=== PATIENT | female | born 1950 | race Asian ===

== ENCOUNTER 2024-04-24 05:05 | Inpatient (IN) | payer MEDICARE, OTHER ==
[~2024-04-24] VITALS: Ht 157.5 cm; Wt 74.6 kg
[2024-04-24] VITALS (9 sets, daily range): BP systolic 108–124; BP diastolic 53–76; TEMP 97.5–98.6; O2SAT 95–100
[2024-04-24] MEDS ORDERED: TRANEXAMIC ACID 1,000 MG/10 ML VIAL ONE (05:48)
[2024-04-24] MEDS ORDERED: POLYMYXIN B SULFATE 500,000 UNITS ONE (05:48)
[2024-04-24] MEDS ORDERED: BUPIVACAINE 0.5 % PF 150 MG/30 ML VIAL ONE (05:48)
[2024-04-24] MEDS ORDERED: FENTANYL PF 250MCG/5ML AMPUL ONE (06:16)
[2024-04-24] MEDS ORDERED: ROCURONIUM BROMIDE 50 MG/5 ML ONE (06:16)
[2024-04-24] MEDS ORDERED: TRANEXAMIC ACID 1,000 MG in SODIUM CHLORIDE IRRIG SOLUTION 90 ML IR ONE (06:30)
[2024-04-24] MEDS ORDERED: SEVOFLURANE 250 ML BOTTLE IH ONE (07:06)
[2024-04-24] MEDS ORDERED: LABETALOL HCL IV 100MG VIAL ONE (07:06)
[2024-04-24] MEDS ORDERED: ROPIVACAINE HCL 0.5% 5 MG/ML 30ML VIAL ONE (07:50)
[2024-04-24] MEDS: FENTANYL PF 100MCG/2ML AMPUL IV PRN (08:40)
[2024-04-24] MEDS ORDERED: HYDROCODONE/APAP 5/325MG TABLET PO PRN (10:30)
[2024-04-24] MEDS ORDERED: BISACODYL SUPP (10 MG) 10 MG/SUPP.RECT SUPP.RECT RC PRN (10:30)
[2024-04-24] MEDS ORDERED: ZOLPIDEM TARTRATE 5 MG TABLET PO PRN (10:30)
[2024-04-24] MEDS ORDERED: ACETAMINOPHEN 325 MG TABLET PO PRN (10:30)
[2024-04-24] MEDS ORDERED: DOCUSATE SODIUM 250 MG CAPSULE PO PRN (10:30)
[2024-04-24] MEDS ORDERED: MENTHOL/CETYLPYRD (CEPACOL) 1 LOZ LOZENGE PO PRN (11:00)
[2024-04-24] MEDS ORDERED: MAGNESIUM HYDROXIDE 30 ML UDC PO PRN (11:00)
[2024-04-24] MEDS ORDERED: MAG HYDROX/AL HYDROX/SIMETH 30 ML UDC PO PRN (11:00)
[2024-04-24] MEDS ORDERED: CLONIDINE HCL 0.1 MG TABLET PO PRN (11:00)
[2024-04-24] MEDS ORDERED: oxyCODONE IR immediate release 5 MG TABLET PO PRN (11:00)
[2024-04-24] MEDS ORDERED: diphenhydrAMINE HCL 25 MG CAPSULE PO PRN (11:00)
[2024-04-24] MEDS: HYDROMORPHONE 1 MG/1 ML DISP.SYRIN IV ONE (11:06)
[2024-04-24] MEDS: FAMOTIDINE (20 MG) 20 MG TABLET PO SCH (11:21)
[2024-04-24 13:14] LABS: HEMOGLOBIN 11.1 g/dL (11.5-14.8)
[2024-04-24] MEDS: ONDANSETRON HCL/PF 4 MG/2 ML VIAL IVP PRN (13:28)
[2024-04-24] MEDS: IV D5/0.45 NACL 1,000 ML IV PRN (13:31)
[2024-04-24] MEDS: HYDROMORPHONE 1 MG/1 ML DISP.SYRIN IV PRN (13:35)
[2024-04-24] MEDS: ANCEF 1 GM/50 ML D5W IV SCH (14:04)
[2024-04-24] MEDS ORDERED: ALBU18HF2 IH (15:56)
[2024-04-24] MEDS ORDERED: AMLO-212 PO (15:56)
[2024-04-24] MEDS ORDERED: LOSA100T31 PO (15:56)
[2024-04-24] MEDS ORDERED: VITA1TAB56 PO (15:56)
[2024-04-24] MEDS: DOCUSATE SODIUM 100 MG CAPSULE PO SCH (16:36)
[2024-04-24] MEDS: oxyCODONE IR immediate release 5 MG TABLET PO PRN (21:54)
[2024-04-25 07:23] LABS: BASOPHILS % (AUTO) 0.4 % (0.0-2.0); EOSINOPHILS # (AUTO) 0.1 K/uL (0.0-0.7); EOSINOPHILS % (AUTO) 1.3 % (0.0-6.0); HEMATOCRIT 31 % (33-45); HEMOGLOBIN 9.7 g/dL (11.5-14.8); LYMPHOCYTES # (AUTO) 1.4 K/uL (0.8-4.8); LYMPHOCYTES % (AUTO) 16.8 % (20.0-44.0); MEAN CORPUSCULAR HEMOGLOBIN 23 PG (26.0-33.0); MEAN CORPUSCULAR HGB CONC 32 g/dl (31.0-36.0); MEAN CORPUSCULAR VOLUME 73 fL (82-100); MONOCYTES # (AUTO) 0.7 K/uL (0.1-1.30); MONOCYTES % (AUTO) 8.5 % (2.0-12.0); NEUTROPHILS # (AUTO) 6.1 K/uL (1.8-8.9); PLATELET COUNT (AUTO) 153 K/uL (150-450); RED CELL DISTRIBUTION WIDTH 14.5 % (11.5-15.0); WHITE BLOOD COUNT (AUTO) 8.4 K/uL (4.3-11.0)
[2024-04-25 07:42] LABS: ALBUMIN 3.2 g/dL (3.4-5.0); BILIRUBIN,TOTAL 0.8 mg/dL (0.2-1.0); CALCIUM, SERUM 8.3 mg/dL (8.5-10.1); CREATININE 0.9 mg/dL (0.6-1.3); MAGNESIUM 2.2 mg/dL (1.8-2.4); PHOSPHORUS 2.9 mg/dL (2.5-4.9); POTASSIUM 3.9 mmol/L (3.5-5.1); TOTAL PROTEIN, SERUM 6.4 g/dL (6.4-8.2)
[2024-04-25 08:00] VITALS: BP 108/57; TEMP 98.8; O2SAT 94
[2024-04-25] MEDS: ASPIRIN 325 MG TABLET PO SCH (08:06)
[2024-04-25] MEDS ORDERED: ALBUTEROL FS 2.5 MG/3 ML VIAL.NEB NEB PRN (12:30)
[2024-04-25] MEDS: SOD FERRIC GLUC 125 MG in IV NS 0.9% 100 ML IV SCH (14:36)
[2024-04-25 16:00] VITALS: BP 138/59; TEMP 100.8; O2SAT 96
[2024-04-25] MEDS: ACETAMINOPHEN 325 MG TABLET PO PRN (16:25)
[2024-04-26 08:00] VITALS: BP 126/62; TEMP 99.1; O2SAT 94
[2024-04-26] MEDS ORDERED: FAMO20TA80 PO (08:58)
[2024-04-26] MEDS ORDERED: OXYC5CAP18 PO (08:58)
[2024-04-26] MEDS ORDERED: ASPI-992 PO (08:58)
[2024-04-26] MEDS ORDERED: BISA10SU61 RC (08:58)
[2024-04-26] MEDS ORDERED: DOCU100C36 PO (08:58)
[2024-04-26] MEDS: VIT B CMPLX 3/FA/VIT C/BIOTIN 1 TAB TABLET PO SCH (09:08)
[2024-04-26] MEDS: LOSARTAN POTASSIUM 50 MG TABLET PO SCH (09:08)
[2024-04-26 09:09] VITALS: BP 124/63
[2024-04-26] MEDS: AMLODIPINE BESYLATE 5 MG TABLET PO SCH (09:09)
[2024-04-26 11:05] VITALS: TEMP 99.1
== END 2024-04-26 11:30 | DRG 470 ==
LOC: DS 05:05 → MED 09:25
PROVIDERS: ADMIT Internal Medicine; ATTEND Nurse Practitioner Acute Care
PROC: 0SRD0J9 Replacement of Left Knee Joint with Synthetic Substitute, Cemented, Open Approach (ICD-10-PCS; principal; 2024-04-24)
DX: M17.12 Unilateral primary osteoarthritis, left knee (principal); E44.1 Mild protein-calorie malnutrition; E66.9 Obesity, unspecified; E88.09 Other disorders of plasma-protein metabolism, not elsewhere classified; Z68.30 Body mass index [BMI] 30.0-30.9, adult; Z90.710 Acquired absence of both cervix and uterus; Z96.651 Presence of right artificial knee joint; Z98.890 Other specified postprocedural states; I10 Essential (primary) hypertension; Z91.013 Allergy to seafood; R53.1 Weakness; R26.89 Other abnormalities of gait and mobility
CPT/HCPCS: 36415; 80053-TC; 83735-TC; 84100-TC; 85025-TC; 85027-TC; 97110-TC; 97116-TC; 97530-TC; A4217; A4223; G0378; J0690; J1171; J2405; J2704; J2795; J2916; J3010; J3490; J7030; J7060